=== PATIENT | female | born 1965 | race Asian ===

== ENCOUNTER 2017-03-29 02:07 | Emergency (ER) | payer BC ==
[2017-03-29 02:23] VITALS: TEMP 36.4
[2017-03-29] MEDS ORDERED: LEVO50TA6 PO (02:57)
[2017-03-29] MEDS ORDERED: GLC/500 PO (02:57)
[2017-03-29] MEDS ORDERED: SUMA50TA15 PO (02:58)
[2017-03-29 03:10] LABS: BASO % 0.8 %; BASO ABS # 0.06 K/uL (0-0.2); COMPLETE YES; EOS % 4.7 %; HEMATOCRIT 35.7 % (37-47); IG% 0.1 %; LYMPH % 36.7 %; LYMPH ABS # 2.82 K/uL (1.2-3.4); MEAN CELL VOLUME 85.6 fL (80-100); MEAN CORPUSCULAR HEMOGLOBIN 28.1 pg (25-34); MEAN CORPUSCULAR HGB CONC 32.8 g/dl (32-36); MEAN PLATELET VOLUME 10.2 fL (7.4-10.4); MONO % 6.6 %; NEUT % 51.1 %; PLATELET COUNT 312 K/uL (130-400); RED BLOOD COUNT 4.17 M/uL (4.2-5.4); URINE APPEARANCE CLEAR (CLEAR); URINE BILIRUBIN NEG (NEG); URINE COLOR YELLOW; URINE NITRITE NEG (NEG); URINE SPECIFIC GRAVITY 1.008 (1.000-1.030); UROBILINOGEN NEG (NEG); WHITE BLOOD COUNT 7.68 K/uL (4.8-10.8)
[2017-03-29 03:17] LABS: MANUAL MICROSCOPIC REQUIRED? NO; REVIEW REQ? NO
[2017-03-29 03:27] LABS: CALCIUM 9.1 mg/dl (8.5-10.1)
[2017-03-29 03:29] LABS: ALT/SGPT 23 U/L (12-78); AST/SGOT 18 U/L (15-37); BLOOD UREA NITROGEN 22 mg/dl (7-18); BUN/CREATININE RATIO 21.5 (10-20); CARBON DIOXIDE 27 mmol/L (21-32); CHLORIDE 108 mmol/L (98-107); GLUCOSE 118 mg/dl (70-99); POTASSIUM 3.5 mmol/L (3.5-5.1); SODIUM 144 mmol/L (136-145)
[2017-03-29 03:32] LABS: BENZODIAZEPINE, URINE NEG (NEG); COCAINE,URINE NEG (NEG); PHENCYCLIDINE, URINE NEG (NEG)
[2017-03-29 03:39] LABS: ALKALINE PHOSPHATASE 77 U/L (45-117)
[2017-03-29] MEDS ORDERED: hydrOXYzine HCL 25 MG TAB PO STA (05:10)
--- NOTE | 2017-03-29 05:10 | EMERGENCY ROOM VISIT NOTE ---
History First contact with patient: 02:43 Chief Complaint: SKIN PROBLEM Stated Complaint: THINKS THAT RESIDENCE IS FULL OF GERMS,CONT. INGES History of Present Illness The patient is a 52 year old female who presents to the Emergency Room with complaints of bugs crawling from her ear into her nose and mouth for the past week. Patient feels as if there is some type of spider crawling on her. She went to the family care doctor and they did blood work. She does not have the results. No prior episodes of this. Patient denies auditory hallucinations, chest pain, dyspnea, abdominal pain, fever, chills, cough, congestion, headache , nausea, vomiting, diarrhea, recent illness. Patient states she went to the family care doctor last week and was given a medication but does not know what it is. Her symptoms were present prior to this though. The [facility] nurse was unable to figure what medication was dispensed as it was not in allscrips. Review of Systems See HPI for pertinent positives & negatives. A total of 10 systems reviewed and were otherwise negative. Past Medical/Surgical History Diabetes, hypertension, hyperthyroidism Social History Smoking Status: Never Smoker Smokeless Tobacco Use: No Alcohol Use: none Drug Use: none Marital Status: Housing Status: lives with family Current/Historical Medications Scheduled Levothyroxine Sodium (Levothyroxine Sodium), 1 TAB PO DAILY Metformin Hcl (Glucophage), 500 MG PO BID Scheduled PRN Sumatriptan Succinate (Imitrex), 50 MG PO UD PRN for Headache Allergies Coded Allergies: No Known Allergies (Unverified , 11/11/13) Physical Exam Vital Signs Date Time Temp Pulse Resp B/P (MAP) Pulse Ox O2 Delivery O2 Flow Rate FiO2 03/29/17 04:35 74 18 135/84 98 Room Air 03/29/17 02:23 36.4 72 20 154/94 98 Room Air Physical Exam VITALS: Vitals are noted on the nurse's note and reviewed by myself. Vital signs stable. GENERAL: Pleasant female answering questions appropriately, in no acute distress , nondiaphoretic, well-developed well-nourished. SKIN: The skin was without rashes, erythema, edema, or bruising. There is no tenting of the skin. Capillary reflex less than 2 seconds. HEAD: Normocephalic atraumatic. EARS: External auditory canals clear, tympanic membranes pearly lopez without erythema or effusion bilaterally. EYES: Pupils equal round and reactive to light and accommodation. Conjunctivae without injection, sclerae without icterus. Extraocular movements intact. NOSE: Patent, turbinates without inflammation or discharge. No sinus tenderness. MOUTH: Mucous membranes moist. Pharynx without erythema or exudate. Uvula midline. Airway patent. Tongue does not deviate. NECK: Supple without nuchal rigidity. No lymphadenopathy. No thyromegaly. Cervical spine is nontender. No JVD. HEART: Regular rate and rhythm without murmurs gallops or rubs. LUNGS: Clear to auscultation bilaterally without wheezes, rales or rhonchi. No dullness to percussion. No retractions or accessory muscle use. ABDOMEN: Positive bowel sounds x 4. Normal tympanic percussion. Soft, nontender, without masses or organomegaly. Echevarria sign negative. No guarding or rebound tenderness. MUSCULOSKELETAL: No muscle atrophy, erythema, or edema noted. NEURO: Patient was alert and oriented to person place and time. Normal sensation to light and sharp touch. No focal neurological deficits. Psych: Pleasant, cooperative Medical Decision & Procedures Laboratory Results 03/29/17 02:55 Red Blood Count 4.17, Mean Corpuscular Volume 85.6, Mean Corpuscular Hemoglobin 28.1, Mean Corpuscular Hemoglobin Concent 32.8, Mean Platelet Volume 10.2, Neutrophils (%) (Auto) 51.1, Lymphocytes (%) (Auto) 36.7, Monocytes (%) (Auto) 6.6, Eosinophils (%) (Auto) 4.7, Basophils (%) (Auto) 0.8, Neutrophils # (Auto) 3.92, Lymphocytes # (Auto) 2.82, Monocytes # (Auto) 0.51, Eosinophils # (Auto) 0.36, Basophils # (Auto) 0.06 03/29/17 02:55 Test 03/29/17 02:55 White Blood Count 7.68 K/uL (4.8-10.8) Red Blood Count 4.17 M/uL (4.2-5.4) Hemoglobin 11.7 g/dL (12.0-16.0) Hematocrit 35.7 % (37-47) Mean Corpuscular Volume 85.6 fL (80-100) Mean Corpuscular Hemoglobin 28.1 pg (25-34) Mean Corpuscular Hemoglobin Concent 32.8 g/dl (32-36) Platelet Count 312 K/uL (130-400) Mean Platelet Volume 10.2 fL (7.4-10.4) Neutrophils (%) (Auto) 51.1 % Lymphocytes (%) (Auto) 36.7 % Monocytes (%) (Auto) 6.6 % Eosinophils (%) (Auto) 4.7 % Basophils (%) (Auto) 0.8 % Neutrophils # (Auto) 3.92 K/uL (1.4-6.5) Lymphocytes # (Auto) 2.82 K/uL (1.2-3.4) Monocytes # (Auto) 0.51 K/uL (0.11-0.59) Eosinophils # (Auto) 0.36 K/uL (0-0.5) Basophils # (Auto) 0.06 K/uL (0-0.2) RDW Standard Deviation 42.1 fL (36.4-46.3) RDW Coefficient of Variation 13.6 % (11.5-14.5) Immature Granulocyte % (Auto) 0.1 % Immature Granulocyte # (Auto) 0.01 K/uL (0.00-0.02) Urine Color YELLOW Urine Appearance CLEAR (CLEAR) Urine pH 6.0 (4.5-7.5) Urine Specific [place] 1.008 (1.000-1.030) Urine Protein NEG (NEG) Urine Glucose (UA) NEG (NEG) Urine Ketones NEG (NEG) Urine Occult Blood NEG (NEG) Urine Nitrite NEG (NEG) Urine Bilirubin NEG (NEG) Urine Urobilinogen NEG (NEG) Urine Leukocyte Esterase NEG (NEG) Anion Gap 9.0 mmol/L (3-11) Estimated GFR () 76.1 Estimated GFR (Non- 65.6 BUN/Creatinine Ratio 21.5 (10-20) Calcium Level 9.1 mg/dl (8.5-10.1) Total Bilirubin 0.6 mg/dl (0.2-1) Direct Bilirubin 0.2 mg/dl (0-0.2) Aspartate Amino Transf (AST/SGOT) 18 U/L (15-37) Alanine Aminotransferase (ALT/SGPT) 23 U/L (12-78) Alkaline Phosphatase 77 U/L (45-117) Total Protein 7.5 gm/dl (6.4-8.2) Albumin 3.6 gm/dl (3.4-5.0) Thyroid Stimulating Hormone (TSH) 1.750 uIu/ml (0.300-4.500) Urine Opiates Screen NEG (NEG) Urine Methadone, Qualitative NEG (NEG) Urine Barbiturates NEG (NEG) Urine Phencyclidine (PCP) Level NEG (NEG) Ur Amphetamine/Methamphetamine NEG (NEG) MDMA (Ecstasy) Screen NEG (NEG) Urine Benzodiazepines Screen NEG (NEG) Urine Cocaine Metabolite NEG (NEG) Urine Marijuana (THC) NEG (NEG) ED Course Prior records/ancillary studies reviewed. Triage Nursing notes reviewed. Additional history obtained from family. The patient's history was concerning for possible psychiatric disturbance. Differential diagnosis: Etiologies such as mood disorder, infection, hypoglycemia, electrolyte abnormalities, cardiac sources, intracerebral event, toxicologic, neurologic, as well as others were entertained. Physical examination: The physical examination was performed as above and was completely benign. No emergent medical pathologies were noted. ER treatment provided: pt was observed On reassessment the patient felt better. Diagnostic interpretation by me: No diagnostic studies were performed based upon the history and physical examination. The labs revealed euthyroid, stable H&H Consultation: [facility] The [facility] was evaluated by mental health in the emergency department and they felt admission was not warranted. The patient was offered psychiatric outpatient treatment and declined . Psychiatry recommends wrist well and Vistaril. Exam and history seem consistent with feeling of having bugs crawling her skin that are not there. Patient is neurovascularly and neurologically intact. Unremarkable workup as above. She was evaluated by psychiatry. Patient had no suicidal or homicidal ideations on exam. Her is willing to care for her. I felt this is reasonable. By the evaluation outlined above emergent etiologies such as infection, hypoglycemia, electrolyte abnormalities, cardiac sources, intracerebral event, toxicologic, neurologic,as well as others were deemed relatively unlikely. It appears the patient is dealing with a psychiatric disturbance. The pt informed about the findings as listed above. All questions were answered and pleased with the treatment. Return instructions were outlined and the patient was discharged in stable condition. Referral: Outpatient services were arranged by psychiatry. The patient will follow-up this week or return to the emergency department if symptoms worsen. or The patient was referred back to their primary care physician for follow-up in 2 to 3 days for a recheck of the current condition. case reviewed with my Attending. Medical Decision as above Impression Primary Impression: Pruritus Departure Information Dispostion Home / Self-Care Condition GOOD Referrals No Doctor, Assigned (PCP) Patient Instructions My [facility] Additional Instructions Vistaril 25 m tablet every 8 hours as needed for itch or for sleep aid. No alcohol or driving on this medication. Rest. Decrease stress. Thoroughly clean your house and wash linen. Flip your mattress to see if there are any bugs. Ibuprofen(Motrin, Advil) may be used for fever or pain. Use 600mg every six hours as needed. Take with food. Avoid using more than 2400mg in a 24 hour period. Do not use 2400mg per day for more than three consecutive days without physician direction. Prolonged inappropriate use can lead to stomach upset or ulcers. (AND/OR) Acetaminophen(Tylenol) may be used for fever or pain. Use 1000mg every six hours as needed. Avoid using more than 3000mg in a 24 hour period. Rest and drink plenty of fluids as tolerated. Continue current medications. Return to the ER immediately for abdominal pain, vomiting, fevers, chest pains , difficulty breathing, worsening of your condition, or as needed. Follow up with your primary physician in 2-3 days for a recheck of your current condition.
[2017-03-29 05:35] VITALS: BP 132/76; PULSE 78; O2SAT 99
== END 2017-03-29 05:36 | disposition home or self-care (01) ==
LOC: C.EDB 02:09
DX: L29.9 Pruritus, unspecified (principal); E11.9 Type 2 diabetes mellitus without complications; I10 Essential (primary) hypertension; E03.9 Hypothyroidism, unspecified